=== PATIENT | female | born 1945 | race Caucasian/White ===

== ENCOUNTER → 2016-11-02 | Outpatient (CLI) | payer MEDICARE, OTHER ==
[~2016-11-02] MED LIST: ASPI81 PO; BENI40TA33 PO; CALC600T34 PO; CYMB30CA PO; ENOX40P SQ; FEXO60TA PO; FISH1000 PO; INSU100V SQ; LASI20TA PO; OMEP20CA5 PO; PERC5TAB12 PO; PREG75 PO; SITA50 PO; [UNRECOGNIZED DRUG - OTHER]
[2016-11-02 12:23] LABS: BLOOD GAS BASE EXCESS -1.7 mmol/L (-2-2); BLOOD GAS CARBOXYHEMOGLOBIN 1.8 % (0-4); BLOOD GAS HCO3 23 mmol/L (22-26); BLOOD GAS O2 HGB SATURATION 88 % (90-100); BLOOD GAS OXYGEN CONTENT 17.6 Vol % (12.0-20.0); BLOOD GAS PCO2 39 mmHg (38-42); BLOOD GAS PO2 64 mmHg (61-120); BLOOD GAS TOTAL HGB 14.2 G/DL (12.0-16.0); TEMP CORR TO 98.6
[2016-11-02 12:24] LABS: CRITICAL VALUE YES; DRAW SITE LT RADIAL; FIO2 21 %
[2016-11-02 12:25] LABS: NUMBER OF ARTERIAL PUNCTURES 1; STAT NO; ULNAR PULSE PRESENT
--- NOTE | 2016-11-09 08:26 | RSPPFT ---
DATE OF PROCEDURE: 11/02/16 COMMENTS: VOLUMES DYNAMIC: FVC mildly reduced; FEV1 normal. STATIC: RV mildly increased; TLC and VTG normal. FLOWS: FEV1% and FEF 25-75 normal. DIFFUSION: Normal. FLOW VOLUME LOOP: Normal configuration. IMPRESSION: Very mild reduction in the FVC but no other airways obstruction. Normal total lung capacity and normal diffusion. There is slight improvement post-bronchodilator and airways resistance is increased. Clinical correlation is required.
== END ==
LOC: HRSP 11:27
PROVIDERS: ATTEND Internal Medicine
DX: J44.9 Chronic obstructive pulmonary disease, unspecified (principal)
CPT/HCPCS: 36600; 82805; 94060; 94620; 94726; 94729

== ENCOUNTER 2017-05-12 13:39 | Observation (INO) | payer MEDICARE, OTHER ==
[2017-05-12] VITALS (7 sets, daily range): BP systolic 141–206; BP diastolic 67–97; PULSE 54–78; RESP 18–24; TEMP 97.9–98.8; O2SAT 93–98
[~2017-05-12] VITALS: Ht 160 cm; Wt 94.0 kg
[2017-05-12 14:18] LABS: BASOPHIL # 0.1 TH/MM3 (0-0.2); BASOPHIL % 0.7 % (0.0-2.0); EOSINOPHIL # 0.3 TH/MM3 (0-0.4); EOSINOPHIL % 3.2 % (0.0-4.0); HEMATOCRIT 41.3 % (35.0-46.0); HEMO FLAGS DIFF FINAL; LYMPHOCYTE # 2.6 TH/MM3 (1.0-4.8); MEAN CELL VOLUME 84.5 FL (80.0-100.0); MEAN CORPUSCULAR HEMOGLOBIN 28.2 PG (27.0-34.0); MEAN CORPUSCULAR HGB CONC 33.3 % (32.0-36.0); MONO % 5.6 % (0.0-8.0); NEUT % 59.5 % (16.0-70.0); PLATELET COUNT 189 TH/MM3 (150-450); RED BLOOD COUNT 4.89 MIL/MM3 (4.00-5.30); RED CELL DISTRIBUTION WIDTH 14.9 % (11.6-17.2); WHITE BLOOD COUNT 8.4 TH/MM3 (4.0-11.0)
[2017-05-12 14:35] LABS: ANION GAP 4 MEQ/L (5-15); BICARBONATE 30.6 MEQ/L (21.0-32.0); BLOOD UREA NITROGEN 13 MG/DL (7-18); CHLORIDE 102 MEQ/L (98-107); GLOMERULAR FILTRATION RATE 70 ML/MIN (>89); POTASSIUM 5.2 MEQ/L (3.5-5.1); SODIUM (NA) 137 MEQ/L (136-145)
[2017-05-12 14:52] LABS: CREATINE KINASE 104 U/L (26-192)
[2017-05-12 15:05] LABS: CKMB 1.6 NG/ML (0.5-3.6)
--- NOTE | 2017-05-12 15:24 | RADRPT ---
EXAM DATE/TIME: 05/12/2017 15:28 [facility] COMPARISON: ANKLE LEFT COMPLETE ([id number]), May 24, 2016, 10:51. INDICATIONS : Midline chest pain with shortness of breath and cough. MEDICAL HISTORY : Hypertension. Diabetes mellitus type II. Chronic obstructive pulmonary disease. Emphysema. SURGICAL HISTORY : None. ENCOUNTER: Initial ACUITY: 2 days PAIN SCORE: 6/10 LOCATION: Chest, midline. FINDINGS: There is cardiomegaly. The mediastinal contours are within normal limits. There are chronic appearing interstitial changes. No acute abnormality is evident. CONCLUSION: 1. Chronic appearing interstitial changes. Faisal Quispe MD on May 12, 2017 at 15:22 Board Certified Radiologist. This report was verified electronically.
--- NOTE | 2017-05-12 16:00 | PD ---
HPI Chief Complaint: Chest Pain Time Seen by Provider: 15:30 Travel History International Travel<30 days: No Contact w/Intl Traveler<30days: No Traveled to known affect area: No History of Present Illness HPI 71-year-old female complains of chest pain. Patient states that she started having recurrent substernal chest pain since last night. Patient states that the pain and heaviness pressure pain substernally with radiation to left-sided neck. Patient took nitroglycerin with relief of the pain. Patient denies any chest pain now. Patient states that she has diaphoresis with the chest pain last night. Patient has history hypertension, diabetes, hyperlipidemia. Patient quit smoking many years ago. Patient has family history heart disease. Patient was seen by Dr. Duke, house coordinator in [place]. Patient had nuclear stress test done about 6 months ago and was told it was normal. Patient denies any coughing congestion fever chills. Patient also has history of chronic bronchitis. Patient has been seen by vp training for that. PFSH Past Medical History Arthritis: Yes Depression: Yes (TAKES CYMBALTA) Cancer: No Cardiovascular Problems: Yes (HTN) High Cholesterol: Yes Chest Pain: Yes (OCCASIONAL, TAKES SUBLINGQUAL NITRO) COPD: Yes Diabetes: Yes Patient Takes Glucophage: Yes (metformin ) Diminished Hearing: Yes Endocrine: Yes Gastrointestinal Disorders: Yes (DIVERTICULITIS) GERD: Yes Glaucoma: No Genitourinary: No Headaches: Yes (2 DAYS/MONTH) Hepatitis: No Hiatal Hernia: Yes Hypertension: Yes Immune Disorder: No Medical other: No Musculoskeletal: Yes Neurologic: Yes Psychiatric: Yes Reproductive: No Respiratory: Yes (COPD) Thyroid Disease: No : 4 Para: 3 Miscarriage: 1 Tubal Ligation: Yes Past Surgical History Ear Surgery: Yes (LEFT EAR, EAR DRUM REPAIR) Gynecologic Surgery: Yes (HYSTERECTOMY) Hysterectomy: Yes Joint Replacement: Yes (BILATERAL KNEES) Other Surgery: Yes Social History Alcohol Use: No Tobacco Use: No Substance Use: No Allergies-Medications (Allergen,Severity, Reaction): Coded Allergies: No Known Allergies (Verified , 05/12/17) Reported Meds & Prescriptions Reported Meds & Active Scripts Active Percocet 5-325 mg (Oxycodone/Acetaminophen) 1 Tab 1 Tab PO Q4H PRN Reported Lovenox (Enoxaparin Sodium) 40 Mg/0.4 Ml Inj 40 Mg SQ DAILY UNGRADUATED PREFILLED SYRINGE Cymbalta (Duloxetine HCl) 30 Mg Cap 30 Mg PO DAILY [Methyitestoshsitp] DAILY Januvia (Sitagliptin Phosphate) 50 Mg Tab 50 Mg PO BID Calcium 600 Mg Tab 600 Mg PO BID Marilee (Fexofenadine HCl) 60 Mg Tab 60 Mg PO DAILY Benicar Hct (Olmesartan/HCTZ) 40 Mg/25 Mg Tab 1 Tab PO DAILY Humalog Mix 75/25 (Insulin Lispro Protam/Lispro Human) 100 Units/Ml Inj 50 Units SQ HS Humalog Mix 75/25 (Insulin Lispro Protam/Lispro Human) 100 Units/Ml Inj 45 Units SQ DAILY Fish Oil 1,000 Mg Cap 1,000 Mg PO DAILY Aspirin 81 Mg Tab 81 Mg PO DAILY Lasix (Furosemide) 20 Mg Tab 20 Mg PO PRN Prilosec 20 mg (Omeprazole) 20 Mg Capcr 20 Mg PO DAILY Lyrica (Pregabalin) 75 Mg Cap 75 Mg PO BID Review of Systems General / Constitutional: No: Fever Eyes: No: Visual changes HENT: No: Headaches Cardiovascular: Positive: Chest Pain or Discomfort Respiratory: No: Shortness of Breath Gastrointestinal: No: Abdominal Pain Genitourinary: No: Dysuria Musculoskeletal: No: Pain Skin: No Rash Neurologic: No: Weakness Psychiatric: No: Depression Endocrine: No: Polydipsia Hematologic/Lymphatic: No: Easy Bruising Physical Exam Narrative GENERAL: Well-nourished, well-developed patient. SKIN: Focused skin assessment warm/dry. HEAD: Normocephalic. EYES: No scleral icterus. No injection or drainage. NECK: Supple, trachea midline. No JVD or lymphadenopathy. CARDIOVASCULAR: Regular rate and rhythm without murmurs, gallops, or rubs. RESPIRATORY: Breath sounds equal bilaterally. No accessory muscle use. GASTROINTESTINAL: Abdomen soft, non-tender, nondistended. MUSCULOSKELETAL: No cyanosis, or edema. BACK: Nontender without obvious deformity. No CVA tenderness. Neurologic exam normal. Data Data Last Documented VS Vital Signs Date Time Temp Pulse Resp B/P (MAP) Pulse Ox O2 Delivery O2 Flow Rate FiO2 05/12/17 15:32 98.3 61 22 177/97 (123) 96 Room Air 05/12/17 15:32 2.00 Orders Orders Electrocardiogram (05/12/17 13:50) Complete Blood Count With Diff (05/12/17 13:50) Basic Metabolic Panel (Bmp) (05/12/17 13:50) Ckmb (Isoenzyme) Profile (05/12/17 13:50) Troponin I (05/12/17 13:50) CKMB (05/12/17 14:00) CKMB% (05/12/17 14:00) Chest, Pa & Lat (05/12/17 13:50) Labs Laboratory Tests Test 05/12/17 14:00 White Blood Count 8.4 TH/MM3 Red Blood Count 4.89 MIL/MM3 Hemoglobin 13.8 GM/DL Hematocrit 41.3 % Mean Corpuscular Volume 84.5 FL Mean Corpuscular Hemoglobin 28.2 PG Mean Corpuscular Hemoglobin Concent 33.3 % Red Cell Distribution Width 14.9 % Platelet Count 189 TH/MM3 Mean Platelet Volume 8.3 FL Neutrophils (%) (Auto) 59.5 % Lymphocytes (%) (Auto) 31.0 % Monocytes (%) (Auto) 5.6 % Eosinophils (%) (Auto) 3.2 % Basophils (%) (Auto) 0.7 % Neutrophils # (Auto) 5.0 TH/MM3 Lymphocytes # (Auto) 2.6 TH/MM3 Monocytes # (Auto) 0.5 TH/MM3 Eosinophils # (Auto) 0.3 TH/MM3 Basophils # (Auto) 0.1 TH/MM3 CBC Comment DIFF FINAL Differential Comment Blood Urea Nitrogen 13 MG/DL Creatinine 0.81 MG/DL Random Glucose 160 MG/DL Calcium Level 9.5 MG/DL Sodium Level 137 MEQ/L Potassium Level 5.2 MEQ/L Chloride Level 102 MEQ/L Carbon Dioxide Level 30.6 MEQ/L Anion Gap 4 MEQ/L Estimat Glomerular Filtration Rate 70 ML/MIN Total Creatine Kinase 104 U/L Creatine Kinase MB 1.6 NG/ML Troponin I LESS THAN 0.02 NG/ML MDM Medical Decision Making Medical Screen Exam Complete: Yes Emergency Medical Condition: Yes Interpretation(s) Last Impressions Chest X-Ray 05/12/17 1710 Signed Impressions: Service Date/Time: Friday, May 12, 2017 15:28 - CONCLUSION: 1. Chronic appearing interstitial changes. Faisal Quispe MD 1559 PM. EKG showed left bundle branch block. CBC within normal limit. BMP within normal limit. Cardiac enzymes are normal. Differential Diagnosis Differential diagnosis including angina, IA, PE, pneumothorax. Narrative Course 71-year-old female complains of recurrent chest pain. Patient will be admitted to the chest pain center. Diagnosis Primary Impression: Chest pain Qualified Codes: R07.9 - Chest pain, unspecified Admitting Information Admitting Physician Requests: Miguel Chavarria MD May 12, 2017 16:00
[2017-05-12] MEDS ORDERED: BYST5TAB2 PO (16:13)
[2017-05-12] MEDS ORDERED: FURO1TAB62 PO (16:13)
[2017-05-12] MEDS ORDERED: PRIL20TA2 PO (16:13)
[2017-05-12] MEDS ORDERED: LYRI75CA PO (16:13)
[2017-05-12] MEDS ORDERED: LANTUS2P SQ (16:13)
[2017-05-12] MEDS ORDERED: CYMB60CA PO (16:13)
[2017-05-12] MEDS ORDERED: INSU100V SQ ×2 (16:13)
[2017-05-12] MEDS ORDERED: METF1000 PO ×2 (16:13)
[2017-05-12] MEDS ORDERED: BENI40TA7 PO (16:13)
[2017-05-12] MEDS ORDERED: ACETAMINOPHEN 500 MG CPLT PO PRN (16:15)
[2017-05-12] MEDS ORDERED: NITROGLYCERIN 0.4 MG SL 25 TABS/BTL SL PRN (16:15)
[2017-05-12] MEDS ORDERED: SODIUM CHLORIDE 0.9% FLUSH 10 ML FLUSH IV FLUSH PRN (16:15)
[2017-05-12] MEDS ORDERED: ONDANSETRON HCL 4 MG/2 ML VIAL IV PUSH PRN (16:15)
--- NOTE | 2017-05-12 16:50 | EKG ---
Date Performed: 05/12/2017 Time Performed: 14:06:42 PTAGE: 71 years EKG: PROBABLE Sinus rhythm LEFT BUNDLE BRANCH BLOCK ABNORMAL ECG NO PREVIOUS TRACING DOCTOR: Vipin Echavarria Interpretating Date/Time 05/12/2017 16:49:09
[2017-05-12 17:43] LABS: CREATINE KINASE 97 U/L (26-192)
--- NOTE | 2017-05-12 19:57 | HHI.HP ---
HPI Primary Care Physician Patsy Lainez MD Chief Complaint Chest pressure History of Present Illness 71 year-old female with history of hypertension, diabetes, hyperlipidemia, and O2 dependent presents to the emergency room for further evaluation of chest pressure. Onset this morning upon awakening 7 AM. Location substernal. Characterized as a heaviness. Initially she felt pain was possibly heartburn. Severity 6/10. No radiation of pain. Duration intermittent. When chest heaviness occurs comes on quickly, lasts 5 minutes then quickly resolves. Nonexertional. Associated symptoms include shortness of breath, nausea, and diaphoresis. Denies similar pain in the past. Precipitating factor she relates to recent pulmonary issues. No known relieving factors. Reports 2 months ago after an upper respiratory infection continue to have dyspnea after URI improved. Established with Dr. John, Dr. John sent her to the [facility]. Reports multiple tests completed but physicians are unable to determine cause of her exertional dyspnea and low SPO2. Review of Systems General: No fatigue,weakness, fever, chills, or change in appetite. Recently developed pulmonary problems after URI infection 2 months ago. Since this time multiple testing completed with Dr. John and at [facility]. Diagnoses has not been determined. HEENT: No LUIS, no vision changes. Chronic nasal congestion and drainage. CV: As stated above. No current CP or pressure. No history of coronary artery disease. RESP: Exertional dyspnea, Pulmonary issues recently started 2 months ago after an upper respiratory infection. O2/2L dependent during the daily, O2/4L night. No cough or sputum production. No hemoptysis or increase in intermittent wheezing. GI: [facility] started her on an antibiotics 2 weeks and since this time has had loose stools. She decided to quick taking 3 days ago and stools have returned to normal. No nausea, vomiting, pain, or distention. : No dysuria, urgency, or frequency EXT: chronic left lower ankle edema MS: No discomfort or change in ROM NEURO: No change in memory, dizziness, difficulty with balance, LOC, motor/ sensory deficits PSYCH: No anxiety, depression, or situational stress SKIN: No rashes, no concerning lesions Past Family Social History Allergies: Coded Allergies: No Known Allergies (Verified , 05/12/17) Past Medical History HTN, DM, HLD, O2 dependent 02/2L day, 02/4L at night, diverticulitis, GERD Past Surgical History Left ankle fracture surgery Reported Medications Reported Meds & Active Scripts Active Reported Lyrica (Pregabalin) 75 Mg Cap 75 Mg PO BID Prilosec (Omeprazole Magnesium) 20 Mg Tab 20 Mg PO DAILY Benicar Hct (Olmesartan-Hydrochlorothiazide) 40-25 mg Tab 1 Tab PO DAILY Lantus Inj (Insulin Glargine) 1,000 Unit/10 Ml Vial 37 Units SQ BID Lasix (Furosemide) 20 Mg Tab 20 Mg PO DAILY PRN Cymbalta DR (Duloxetine HCl) 60 Mg Capdr 60 Mg PO DAILY Humalog SSI AC and HS Eye vitamin daily Magnesium daily Vitamin D QD Vitamin C QD Active Ordered Medications Current Medications Medications (Trade) Dose Ordered Sig/Zoe Route Start Time Stop Time Status Last Admin (NS Flush) 2 ml UNSCH PRN IV FLUSH 05/12/17 16:15 (NS Flush) 2 ml BID IV FLUSH 05/12/17 21:00 (Tylenol) 500 mg Q4H PRN PO 05/12/17 16:15 (Zofran Inj) 4 mg Q6H PRN IV PUSH 05/12/17 16:15 (Nitrostat Sl) 0.4 mg Q5M PRN SL 05/12/17 16:15 Family History Father age 60 [place]. 3 brothers in early 60s from [place]. Social History Known diabetes, hypertension, hyperlipidemia. Quit smoking 26 years ago. Denies any neck or illegal drug use. Active. Able to complete housework with O2 therapy. Past cardiac testing Chemical Stress test and your ago. Patient's steel pourer helper is Dr. Duke. Never required artier catheterization. No known coronary artery disease. Physical Exam Vital Signs Vital Signs Date Time Temp Pulse Resp B/P (MAP) Pulse Ox O2 Delivery O2 Flow Rate FiO2 05/12/17 17:16 56 18 165/72 (103) 95 Room Air 2.00 05/12/17 15:32 98.3 61 22 177/97 (123) 96 Room Air 05/12/17 15:32 58 18 96 Nasal Cannula 2.00 05/12/17 13:42 97.9 77 24 206/81 (122) 93 Nasal Cannula 2.00 Physical Exam GENERAL: Alert WN, WD, NAD, pleasant, obese female HEAD: NC, AT EYES: Sclera clear, conjunctiva without injection ENT: Mucous membranes pink and moist NECK: Supple, no masses, trachea midline CV: RRR, without murmur, rub, gallop, no JVD, S1-S2 no S3-S4. Chest wall nontender with palpation. RESP: Clear lungs throughout bilateral, no crackles, wheeze, rhonchi, symmetrical chest rise, nonlabored, able to speak in full sentences. O2/2L in place. ABD: Soft, NT, ND, no masses, positive bowel tones EXT: Pulses +24, left ankle dependent edema nonpitting MS: Normal tone 4 extremities, no obvious deformities, full range of motion NEURO: CN II through CN XII grossly intact, motor strength 5/5 PSYCH: A+O 3, pleasant affect, appropriate speech, appropriate mood and affect , insight and judgment SKIN: Normal turgor, normal texture, no lesions, no rashes, brisk cap refill, even hair distribution Laboratory Laboratory Tests Test 05/12/17 14:00 05/12/17 17:00 White Blood Count 8.4 Red Blood Count 4.89 Hemoglobin 13.8 Hematocrit 41.3 Mean Corpuscular Volume 84.5 Mean Corpuscular Hemoglobin 28.2 Mean Corpuscular Hemoglobin Concent 33.3 Red Cell Distribution Width 14.9 Platelet Count 189 Mean Platelet Volume 8.3 Neutrophils (%) (Auto) 59.5 Lymphocytes (%) (Auto) 31.0 Monocytes (%) (Auto) 5.6 Eosinophils (%) (Auto) 3.2 Basophils (%) (Auto) 0.7 Neutrophils # (Auto) 5.0 Lymphocytes # (Auto) 2.6 Monocytes # (Auto) 0.5 Eosinophils # (Auto) 0.3 Basophils # (Auto) 0.1 CBC Comment DIFF FINAL Differential Comment Blood Urea Nitrogen 13 Creatinine 0.81 Random Glucose 160 Calcium Level 9.5 Sodium Level 137 Potassium Level 5.2 Chloride Level 102 Carbon Dioxide Level 30.6 Anion Gap 4 Estimat Glomerular Filtration Rate 70 Total Creatine Kinase 104 97 Creatine Kinase MB 1.6 Troponin I LESS THAN 0.02 LESS THAN 0.02 Result Diagram: 05/12/17 1400 05/12/17 1400 Imaging Last Impressions Chest X-Ray 05/12/17 1350 Signed Impressions: Service Date/Time: Friday, May 12, 2017 15:28 - CONCLUSION: 1. Chronic appearing interstitial changes. Faisal Quispe MD Course EKG NSR, left bundle branch block Caprini VTE Risk Assessment Caprini VTE Risk Assessment: Mod/High Risk (score >= 2) Caprini Risk Assessment Model Point Value = 1 Point Value = 2 Point Value = 3 Point Value = 5 Age 41-60 Minor surgery BMI > 25 kg/m2 Swollen legs Varicose veins or History of unexplained or recurrent spontaneous Oral contraceptives or hormone replacement Sepsis (< 1 month) Serious lung disease, including pneumonia (< 1 month) Abnormal pulmonary function Acute myocardial infarction Congestive heart failure (< 1 month) History of inflammatory bowel disease Medical patient at bed rest Age 61-74 Arthroscopic surgery Major open surgery (> 45 min) Laparoscopic surgery (> 45 min) Malignancy Confined to bed (> 72 hours) Immobilizing plaster cast Central venous access Age >= 75 History of VTE Family history of VTE Factor V Leiden Prothrombin [id number] Lupus anticoagulant Anticardiolipin antibodies Elevated serum homocysteine Heparin-induced thrombocytopenia Other congenital or acquired thrombophilia Stroke (< 1 month) Elective arthroplasty Hip, pelvis, or leg fracture Acute spinal cord injury (< 1 month) Prophylaxis Regimen Total Risk Factor Score Risk Level Prophylaxis Regimen 0-1 Low Early ambulation 2 Moderate Order ONE of the following: *Sequential Compression Device (SCD) *Heparin 5000 units SQ BID 3-4 Higher Order ONE of the following medications: *Heparin 5000 units SQ TID *Enoxaparin/Lovenox 40 mg SQ daily (WT < 150 kg, CrCl > 30 mL/min) *Enoxaparin/Lovenox 30 mg SQ daily (WT < 150 kg, CrCl > 10-29 mL/min) *Enoxaparin/Lovenox 30 mg SQ BID (WT < 150 kg, CrCl > 30 mL/min) AND/OR *Sequential Compression Device (SCD) 5 or more Highest Order ONE of the following medications: *Heparin 5000 units SQ TID (Preferred with Epidurals) *Enoxaparin/Lovenox 40 mg SQ daily (WT < 150 kg, CrCl > 30 mL/min) *Enoxaparin/Lovenox 30 mg SQ daily (WT < 150 kg, CrCl > 10-29 mL/min) *Enoxaparin/Lovenox 30 mg SQ BID (WT < 150 kg, CrCl > 30 mL/min) AND *Sequential Compression Device (SCD) Assessment and Plan Assessment and Plan Chest pain-admitted chest pain center. Ruled out with 3 sets of EKGs, cardiac enzymes, and monitored overnight. Will be seen and evaluated by Dr. Epifanio Zepeda. Discussed the likelihood of chemical stress test in a.m., this will be decided after being assessed by steel pourer helper. Patient agreeable to plan a care Diabetes-SSI moderate dose Hypertension-continue Benicar Chronic bronchitis-continue O2/2L, O2 titration maintain SPO2 greater than 92% GERD-continue Prilosec Elizabeth Potts May 12, 2017 19:57
[2017-05-12] MEDS ORDERED: GLUCAGON 1 MG/ML VIAL OTHER PRN (20:15)
[2017-05-12] MEDS ORDERED: DEXTROSE 50% IN WATER 50 ML VIAL(D50) IV PUSH PRN (20:15)
[2017-05-12] MEDS ORDERED: RESP: ALBUTEROL 2.5 MG/3 ML NEB (PRN) NEB (20:15)
[2017-05-12 20:49] LABS: CREATINE KINASE 96 U/L (26-192)
[2017-05-12] MEDS: INSULIN DETEMIR 100 UNITS/ML VIAL SQ SCH (21:00)
--- NOTE | 2017-05-12 21:25 | EKG ---
Date Performed: 05/12/2017 Time Performed: 19:53:46 PTAGE: 71 years EKG: SINUS BRADYCARDIA WITH SINUS ARRHYTHMIA LEFT BUNDLE BRANCH BLOCK ABNORMAL ECG PREVIOUS TRACING : 05/12/2017 16.54 No significant change from previous tracing noted. DOCTOR: Vipin Echavarria Interpretating Date/Time 05/12/2017 21:23:36
--- NOTE | 2017-05-12 21:34 | EKG ---
Date Performed: 05/12/2017 Time Performed: 16:54:13 PTAGE: 71 years EKG: Sinus rhythm LEFT BUNDLE BRANCH BLOCK ABNORMAL ECG PREVIOUS TRACING : 05/12/2017 14.06 No significant change from previous tracing noted. DOCTOR: Vipin Echavarria Interpretating Date/Time 05/12/2017 21:32:25
[2017-05-12] MEDS: SODIUM CHLORIDE 0.9% FLUSH 10 ML FLUSH IV FLUSH SCH (22:17)
[2017-05-12] MEDS: PREGABALIN 75 MG CAP PO SCH (22:18)
[2017-05-12] MEDS: INSULIN ASPART SUPPLEMENTAL SCALE SQ SCH (22:19)
[2017-05-13] VITALS: PULSE 58
[2017-05-13 05:35] VITALS: BP_SYST 167; BP_SYST 168; BP_DIAS 76; BP_DIAS 78; PULSE 60; RESP 18; TEMP 98.1; O2SAT 94; O2SAT 97
[2017-05-13 07:03] VITALS: PULSE 57
[2017-05-13 07:55] VITALS: O2SAT 96
[2017-05-13] MEDS: INSULIN ASPART SUPPLEMENTAL SCALE SQ SCH ×2 (08:00→12:00)
[2017-05-13 08:14] VITALS: BP 164/70; PULSE 60; RESP 20; TEMP 97.9; O2SAT 96
[2017-05-13] MEDS: INSULIN DETEMIR 100 UNITS/ML VIAL SQ SCH (08:18)
[2017-05-13] MEDS: SODIUM CHLORIDE 0.9% FLUSH 10 ML FLUSH IV FLUSH SCH (08:26)
[2017-05-13] MEDS: PREGABALIN 75 MG CAP PO SCH (08:27)
[2017-05-13 08:52] LABS: BICARBONATE 30.7 MEQ/L (21.0-32.0); POTASSIUM 4.2 MEQ/L (3.5-5.1)
[2017-05-13] MEDS ORDERED: PANTOPRAZOLE SOD 20 MG DELAYED RELEASE TAB PO SCH (09:00)
[2017-05-13] MEDS ORDERED: HYDROCHLOROTHIAZIDE 25 MG TAB PO SCH (09:00)
[2017-05-13] MEDS ORDERED: LOSARTAN 50 MG TAB PO SCH (09:00)
[2017-05-13] MEDS ORDERED: DULoxetine HCl DR 60 MG CAP PO SCH (09:00)
[2017-05-13] MEDS ORDERED: REGADENOSON INJ 0.4 MG/5 ML SYR ONE (10:01)
--- NOTE | 2017-05-13 11:55 | RADRPT ---
EXAM DATE/TIME: 05/13/2017 09:33 [facility] COMPARISON: No previous studies available for comparison. INDICATIONS : Substernal chest pain for 2 days. Angina. DOSE: 25.9 mCi Tc99m Myoview at stress. 8.2 mCi Tc99m Myoview at rest. 0.4 mg Lexiscan STRESS SYMPTOMS: Short of breath. EJECTION FRACTION: 46% MEDICAL HISTORY : Diabetes mellitus type 2. Chronic obstructive pulmonary disease. Hypertension. SURGICAL HISTORY : Hysterectomy. Tubal ligation. ENCOUNTER: Initial ACUITY: 2 days PAIN SCALE: 3/10 LOCATION: Substernal chest TECHNIQUE: The patient underwent pharmacologic stress with infusion of prescribed dose. Continuous ECG tracing was monitored during stress. Gated SPECT imaging was performed after stress and conventional SPECT i maging was performed at rest. The examination was performed on a SPECT/CT scanner, both attenuation and non-corrected datasets were reviewed. FINDINGS: DISTRIBUTION: The maximum perfused segment at stress is in the septal wall. PERFUSION STUDY: The pattern of perfusion at stress is within normal limits. There are no reversible defects noted or significant fixed defects. Mild apical thinning is noted. GATED STUDY: There is mild diffuse hypokinesis noted on the gated images. The ejection fraction of 46% is mildly l ow. CONCLUSION: Mild diffuse hypokinesis with mildly low ejection fraction of 46%. No evidence of reversible defect o r significant fixed defect.. RISK CATEGORY: Intermediate risk. Zuleyma Sanchez MD on May 13, 2017 at 11:52 Board Certified Radiologist. This report was verified electronically.
[2017-05-13 12:36] VITALS: BP 166/73; PULSE 57; RESP 18; TEMP 96.8; O2SAT 95
--- NOTE | 2017-05-13 12:41 | HHI.DCPOC ---
Discharge Care Plan Diagnosis: (1) CAD (coronary artery disease) (2) Chest pain (3) DM (diabetes mellitus) (4) HTN (hypertension) (5) COPD (chronic obstructive pulmonary disease) Goals to Promote Your Health * To prevent worsening of your condition and complications * To maintain your health at the optimal level Directions to Meet Your Goals Take your medications as prescribed Follow your dietary instruction Follow activity as directed Keep your appointments as scheduled Take your immunizations and boosters as scheduled If your symptoms worsen call your PCP, if no PCP go to Urgent Care Center or Emergency Room Smoking is Dangerous to Your Health. Avoid second hand smoke Call the 24-hour hour crisis hotline for domestic abuse at [facility] May 13, 2017 12:41
[2017-05-13] MEDS ORDERED: ATOR40TA16 PO (12:44)
--- NOTE | 2017-05-13 13:38 | TR ---
Date Performed: 05/13/2017 Time Performed: 10:32:57 DOCTOR: Epifanio Zepeda DRUG LIST: CLINICAL HISTORY: REASON FOR TEST: REASON FOR ENDING: OBSERVATION: CONCLUSION: Lexiscan stress test was performed under standard four minute protocol. Radionuclide was injected one minute prior to ending the test. No electrocardiographic abormalities were present to suggest ischemia. Nuclear imaging and interpretation are pending. COMMENTS:
== END 2017-05-13 13:54 | disposition home or self-care (01) ==
LOC: NEPC 13:39 → NEPHCDU 16:03 → NEDA 17:01 → NEPFCDU 21:25
DX: I25.10 Atherosclerotic heart disease of native coronary artery without angina pectoris (principal); R07.9 Chest pain, unspecified; E11.9 Type 2 diabetes mellitus without complications; I10 Essential (primary) hypertension; E78.5 Hyperlipidemia, unspecified; I44.7 Left bundle-branch block, unspecified; J44.9 Chronic obstructive pulmonary disease, unspecified; K21.9 Gastro-esophageal reflux disease without esophagitis; H91.90 Unspecified hearing loss, unspecified ear; Z99.81 Dependence on supplemental oxygen; Z87.891 Personal history of nicotine dependence; Z82.49 Family history of ischemic heart disease and other diseases of the circulatory system; Z79.84 Long term (current) use of oral hypoglycemic drugs
CPT/HCPCS: 71020; 78452; 80048; 82550; 82552; 82948; 84484; 85025; 93005; 93017; 96372; 99285; A9502; G0378; J1815; J2785